=== PATIENT | male | born 1975 | race Caucasian/White ===

== ENCOUNTER 2020-08-20 09:13 | Outpatient (CLI) | payer OTHER | END 2020-08-20 09:18 | disposition home or self-care (01) | LOC: SONOGRAMA 09:13 → MAMO-SONO 10:00 | DX: E03.8 Other specified hypothyroidism (principal); M25.569 Pain in unspecified knee ==

== ENCOUNTER 2020-09-02 12:09 | Outpatient (CLI) | payer OTHER | END 2020-09-02 12:32 | disposition home or self-care (01) | LOC: MRI 12:09 → MAMO-SONO 12:15 → MRI 12:32 | PROVIDERS: ATTEND Orthopaedic Surgery | DX: M25.512 Pain in left shoulder (principal); M75.122 Complete rotator cuff tear or rupture of left shoulder, not specified as traumatic; M25.561 Pain in right knee | CPT/HCPCS: 73718 ==